=== PATIENT | female | born 1990 | race Caucasian/White ===

== ENCOUNTER 2025-02-02 11:45 | Outpatient (REF) | payer OTHER, SELFPAY ==
--- OUTSIDE RECORDS SUMMARY | 2025-01-28 10:00 | XMS_ITS | Encounter Summary ---
Author Organization [employer] Address [address] [place] [address] Care Team Providers Care Object Oriented Programmer Name Role Phone Unavailable Primary Care Provider Unavailabl e Reason for Visit * Reason Comments Extraction #18 Encounter Details Date Type Department Care Team (Late st Contact Info) Description 01/28/2025 10:00 AM EDT Office Visit [facility] [address] [place], [place] [phone] Laureano Jordan DDS [address], [place] [phone] Dental abscess (Primary Dx) Social History Tobacco Use Types Packs/Day Years Used Date Smoking Tobacco: Never Smokeless Tobacco: Never Alcohol Use Standard Drinks/Week Comments Never 0 (1 standard drink = 0.6 oz pur e alcohol) Housing Stability Answer Date Recorded What is your housing situation today? I have adam lemon 01/27/[address] you li ve. Do you have problems with any of the following? None of the above 01/27/2025 Food Insecurity Answer Date Recorded Within the past 12 months, y ou worried that your food would run out before you got money to buy more: Never True 01/27/2025 Within the past 12 months,th e food you bought just didn't last and you didn't have enough money to get more: Never True Transportation Answer Date Recorded In the past 12 months, has l ack of transportation kept you from medical appts, meetings, work or from getting things needed for daily living? Yes, it has kept me from medical appointments or getting medications. 01/27/2025 Utilities Answer Date Recorded In the past 12 months, has t he electric, gas, oil or water company threatened to shut off services in your home? No 01/27/2025 Internet Access Answer Date Recorded Internet Access Q1 Yes 01/27/2025 Internet Access Q2 Not on file 01/27/2025 Comments Unknown Sex and Gender Information Value Date Recorded Sex Assigned at Female 03/11/2022 10:21 AM EDT Legal Sex Female 10:21 AM EDT Gender Identity Female 03/11/2022 10:21 AM EDT Sexual Orientation Choose not to disclose 2021 10:21 AM EDT documented as of this encounter Last Filed Vital Signs Vital Sign Reading Time Taken Comments Blood Pressure 100/70 01/28/2025 10:19 AM EDT Pulse 88 01/28/2025 10:19 AM EDT Temperature - - Respiratory Rate - - Oxygen Saturation - - Inhaled Oxygen Concentration - - Weight - - Height - - Body Mass Index - - documented in this encounter Progress Notes * Laureano Jordan, JANES - 01/28/2025 10:00 AM EDT Patient ID: Robert Munoz is a 35 y.o. female. Time Out: Timeout Date: 01/28/25, Timeout Time: 1019 (ext on tooth#18) Location: [facility] Tooth: Mandible and #18 Procedure: Extraction Verified the above with patient, social human services assistants, and provider. Confirmed via patient's chart, intraorally and by radiographs. Senior Center Manager: not applicable Chief Complaint Patient presents with Extraction #18 Medical Hx: Vitals: Blood pressure 100/70, pulse 88. Medical History[1] Medications: Encounter Medications[2] Consent Obtained: The risks, benefits, indications, potential complications, and alternatives were explained to the patient and informed consent was obtained with good understanding. Treatment Provided: Dental procedures in this visit D7140 - EXTRACTION, ERUPTED TOOTH OR EXPOSED ROOT (ELEVATION/FORCEPS REMOVAL) 18 D9450 - CASE PRESENTATION, DETAILED AND EXTENSIVE TREATMENT PLANNING Diagnosis: dental abscess Topical: 20% Benzocaine Anesthesia: 2% Lidocaine (Xylocaine) w/ 1:100,000 epinephrine Number of Cartridges: 2 Injection Type: Inferior alveolar nerve block, Long buccal nerve block, and Intrapapillary injection Confirmed profound anesthesia. Pharyngeal curtain and bite block placed. Removed tooth with elevators and forceps. Apices intact. Surgical Extraction: Yes, sectioned tooth with surgical handpiece and bur Socket curetted & irrigated with sterile water. Compressed alveolar bone. Sutures: None Needed All adjacent teeth intact. Hemostasis achieved. Complications: None. Pt tolerated procedure well.Pt states having analgesics at home. Written and verbal post-op instructions given. Patient discharged in stable condition; ambulatory, alert, and oriented. NV: F/u as needed Caustic Strength Inspector: Mercy Dave Dentist: Laureano Jordan DDS [1] Past Medical History: Diagnosis Date Known health problems: none [2] Outpatient Encounter Medications as of 01/28/2025 Medication Sig Dispense Refill acetaminophen (Tylenol 8 Hour) 650 MG ER tablet Take 1 tablet (650 mg) by mouth every 8 (eight) hours if needed for mild pain. Do not crush, chew, or split. 30 tablet 0 amoxicillin (Amoxil) 500 MG capsule Take 1 capsule (500 mg) by mouth every 8 (eight) hours for 7 days. 21 capsule 0 ibuprofen 600 MG tablet Take 1 tablet (600 mg) by mouth 3 times daily. 15 tablet 0 No facility-administered encounter medications on file as of 01/28/2025. documented in this encounter Plan of Treatment Upcoming Encounters Date Type Department Care Team (Late st Contact Info) Description 03/24/2025 10:00 AM EST Procedure Visit [facility] [address] [place], [place] [phone] Ramesh Leon, LICENSED PESTICIDE APPLICATOR [address] [place] [address] documented as of this encounter Procedures Procedure Name Priority Date/Time Associated Diagnosis Comments 18 EXTRACTION, ERUPTED TOOTH OR EXPOSED ROOT (ELEVATION/FORCEPS REMOVAL) Routine 01/28/2025 10:00 AM EDT CASE PRESENTATION, DETAILED AND EXTENSIVE TREATMENT PLANNING Routine 01/28/2025 10:00 AM EDT documented in this encounter Visit Diagnoses Diagnosis Dental abscess- Primary Periapical abscess without sinus documented in this encounter
--- OUTSIDE RECORDS SUMMARY | 2025-02-02 10:00 | XMS_ITS | Encounter Summary ---
Author Organization [employer] Address [address] [place] [address] [address] [address] Care Team Providers Care Chief Of Staff Name Role Phone Unavailable Primary Care Provider Unavailabl e Reason for Referral * Medications - Closed Specialty Diagnoses / Procedures Referred By Lawanda andres Referred To Contact Diagnoses Class 3 severe obesity due to excess calories with body mass index (BMI) of 40.0 to 44.9 in adult, unspecified whether serious comorbidity present Ramesh Leon CNP [address] [place] [address] Phone: tel: fax: Referral ID Status Reason Start Date Expiration Date Visits Re quested Visits Authorized [id number] Closed 1 1 * Consultation (Routine) - Authorized Specialty Diagnoses / Procedures Referred By Lawanda andres Referred To Contact Nutrition Diagnoses Class 2 obesity Ramesh Leon CNP [address] [place] [address] Phone: tel: fax: Referral ID Status Reason Start Date Expiration Date Visits Requested Visits Authorized [id number] Authorized Consult and Treat 02/02/2025 02/02/2026 1 1 Encounter Details Date Type Department Care Team (Late st Contact Info) Description 02/02/2025 10:00 AM EDT Office Visit [facility] [address] [place], [place] [phone] Ramesh Leon CNP [address] [place] [address] Encounter for physical examination (Primary Dx); Depression, unspecified depression type; Migraine without aura and without status migrainosus, not intractable; Dietary counseling; Exercise counseling; Class 3 severe obesity due to excess calories with body mass index (BMI) of 40.0 to 44.9 in adult, unspecified whether serious comorbidity present; Class 2 obesity Social History Tobacco Use Types Packs/Day Years Used Date Smoking Tobacco: Never Smokeless Tobacco: Never Alcohol Use Standard Drinks/Week Comments Never 0 (1 standard drink = 0.6 oz pur e alcohol) Depression Answer Date Recorded Patient Health Questionnaire-9 Score 6 02/02/2025 Patient Health Questionnaire-9 Score 6 02/02/2025 Last PHQ-9: Questionnaire Data Not on file 0 02/02/2025 Housing Stability Answer Date Recorded What is [...] from getting things needed for daily living? No 02/02/2025 Utilities Answer Date Recorded In the past 12 months, has t he electric, gas, oil or water company threatened to shut off services in your home? No 01/27/2025 Depression Answer Date Recorded Patient Health Questionnaire-2 Score 2 02/02/2025 Internet Access Answer Date Recorded Internet Access Q1 Yes 01/27/2025 Internet Access Q2 Not on file 01/27/2025 Comments No Sex and Gender Information Value Date Recorded Sex Assigned at Female 03/11/2022 10:21 AM EDT Legal Sex Female 10:21 AM EDT Gender Identity Female 03/11/2022 10:21 AM EDT Sexual Orientation Choose not to disclose 2021 10:21 AM EDT documented as of this encounter Last Filed Vital Signs Vital Sign Reading Time Taken Comments Blood Pressure 126/72 02/02/2025 10:16 AM EDT Pulse 80 02/02/2025 10:16 AM EDT Temperature 36.6 C (97.8 F) 02/02/2025 10:16 AM EDT Respiratory Rate 14 02/02/2025 10:16 AM EDT Oxygen Saturation 99% 02/02/2025 10:16 AM EDT Inhaled Oxygen Concentration - - Weight 103 kg (226 lb) 02/02/2025 10:16 AM EDT Height 152.4 cm (5') 02/02/2025 10:16 AM EDT Body Mass Index 44.14 02/02/2025 10:16 AM EDT documented in this encounter Functional Status * Over the past 2 weeks, how often have you been bothered by any of the following problems? Question Answer Date of Assessment Author Patient Health Questionnaire -2 Score 2 02/02/2025 10:21 AM EDT Sa dayan Hester [place] * Little interest or pleasure in doing things Answer Date of Assessment Author Several days 02/02/2025 10:21 AM EDT Tere Beth [place] * Feeling down, depressed, or hopeless Answer Date of Assessment Author Several days 02/02/2025 10:21 AM EDT Tere Beth [place] * Trouble falling or staying asleep, or sleeping too much Answer Date of Assessment Author Several days 02/02/2025 10:21 AM EDT Tere Beth [place] * Feeling tired or having little energy Answer Date of Assessment Author Several days 02/02/2025 10:21 AM EDT Tere Beth [place] * Poor appetite or overeating Answer Date of Assessment Author Several days 02/02/2025 10:21 AM EDT Tere Beth [place] * Feeling bad about yourself - or that you are a failure or have let yourself or your family down Answer Date of Assessment Author Not at all 02/02/2025 10:21 AM AKOSUAT Tere Beth MA * Trouble concentrating on things, such as reading the newspaper or watching television Answer Date of Assessment Author Several days 02/02/2025 10:21 AM EDT Tere Beth [place] * Moving or speaking so slowly that other people could have noticed? Or the opposite - being so fidgety or restless that you have been moving around a lot more than usual. Answer Date of Assessment Author Not at all 02/02/2025 10:21 AM EDT Tere Beth MA * Thoughts that you would be better off or hurting yourself in some way Answer Date of Assessment Author Not at all 02/02/2025 10:21 AM AKOSUAT Tere Beth MA * Patient Health Questionnaire-9 Score Answer Date of Assessment Author 6 02/02/2025 10:21 AM AKOSUAT Tere Beth MA * How difficult have these problems made it for you to do your work, take care of things at home, or get along with other people? Answer Date of Assessment Author Not difficult at all 02/02/2025 10:21 AM EDT Tere Dudley MA * Over the last 2 weeks, how often have you been bothered by any of the following problems? Question Answer Date of Assessment Author Feeling nervous, anxious, or on edge 0 02/02/2025 10:20 AM EDT Sa dayan Hester MA Not being able to stop or control worrying 1 02/02/2025 10:20 AM AKOSUAT Sa dayan Hester MA Worrying too much about different things 3 02/02/2025 10:20 AM Sa dayan Tam MA Trouble relaxing 1 02/02/2025 10:20 AM Tere Tam MA Being so restless that it is hard to sit still 0 02/02/2025 10:20 AM Sa dayan Tam MA Becoming easily annoyed or irritable 3 02/02/2025 10:20 AM Sa dayan Tam MA Feeling afraid as if somethi ng awful might happen 0 02/02/2025 10:20 AM Sa dayan Tam MA PRINCESS-7 Total Score 8 02/02/2025 10:20 AM Tere Tam MA documented as of this encounter Progress Notes * Ramesh Leon CNP - 02/02/2025 10:00 AM EDT Subjective: Robert Munoz is a 35 y.o. female who presents to the office for a new patient visit. Previous PCP unknown. Interim history: - History of migraines and depression, pt reports these conditions are stable at this time, not currently taking any medications at this time. She declines additional support at this time. - Gradual weight gain over several years, difficulty with motivation for diet and exercise, comforteating due to depression and stress Current concerns: Weight gain -pt reports an ongoing struggle with weight gain over the last few years. -she reports she lacks motivation for a consistent diet/exercise regimen. -she was offered bariatric surgery in the past but she is interested in discussing non surgical options. -she also attributes her chronic back pain to her weight. Problem List[1] Surgical History[2] Family History[3] Social History Living situation: has secure housing Diet/exercise: denies Substance use: denies Mental health: Patient Health Questionnaire-9 Score: 6 (02/02/2025 10:21 AM) Patient Health Questionnaire-2 Score: 2 (02/02/2025 10:21 AM) Thoughts that you would be better off or hurting yourself in some way: Not at all (02/02/2025 10:21 AM) PRINCESS-7 Total Score: 8 (02/02/2025 10:20 AM) Contraception: none at this time, no actively seeking Patient's last menstrual period was 01/11/2025. Periods are irregular, reports they used to be regular up until about 1 yr ago, sometimes she has one at the beginning and the end of the month Allergies[4] Review of Systems Constitutional: Positive for unexpected weight change. Negative for activity change and appetite change. Musculoskeletal: Positive for back pain. Negative for arthralgias, gait problem, joint swelling, myalgias, neck pain and neck stiffness. Vitals: 02/02/25 1016 BP: 126/72 BP Location: Left arm Patient Position: Sitting BP Cuff Size: Large adult Pulse: 80 Resp: 14 Temp: 97.8 ??F (36.6 ??C) TempSrc: Oral SpO2: 99% Weight: 226 lb (103 kg) Height: 5' (1.524 m) Physical Exam Constitutional: Appearance: Normal appearance. She is obese. Cardiovascular: Rate and Rhythm: Normal rate and regular rhythm. Pulses: Normal pulses. Heart sounds: Normal heart sounds. No murmur heard. No friction rub. No gallop. Pulmonary: Effort: Pulmonary effort is normal. No respiratory distress. Breath sounds: Normal breath sounds. No wheezing or rales. Neurological: General: No focal deficit present. Mental Status: She is alert and oriented to person, place, and time. Psychiatric: Mood and Affect: Mood normal. Behavior: Behavior normal. Thought Content: Thought content normal. Judgment: Judgment normal. Assessment & Plan Encounter for physical examination 1. Anticipatory guidance discussed. Specific topics reviewed: drugs, ETOH, and tobacco, importance of regular dental care, importance of regular exercise, importance of varied diet, minimize junk food, and sex; STD and prevention as appropriate. 2. Age appropriate screenings discussed and recommended Routine Screening and Health Maintenance Optometry: No will put in appointment request Dentist: Yes BMD: not yet indicated ASCVD risk: 35 y.o. femaleobese sedentary lifestyle Lab Review: orders written for new lab studies as appropriate; see orders Imms: Covid, flu, tdap, will offer at f/u. Hep B serologies pending Routine Cancer Screening Breast CA: not yet due Cervical CA: due, plan to complete at f/u. Colon CA: not yet due Lung CA: not yet due Orders: CBC auto differential; Future Comprehensive Metabolic Panel; Future TSH W/Reflex to FT4; Future Lipid Panel, Standard; Future Hemoglobin A1c; Future Hepatitis B Surface Antibody, Qualitative; Future Hepatitis B Core Antibody, Total; Future Hepatitis B surface antigen, EIA; Future HIV-1/2 Antigen and Antibodies, Fourth Generation, with Reflexes; Future Hepatitis C Antibody with Reflex to HCV, RNA, Quantitative, Real-Time PCR; Future Depression, unspecified depression type Stable, no interventions indicated at this time Pt declined services Migraine without aura and without status migrainosus, not intractable Stable, no interventions indicated at this time. Dietary counseling Dietary Recommendations: Fruits, vegetables, whole grains, protein foods, and fat-free or low-fat dairy products are healthychoices. Eat different types of protein foods in your diet. This can include seafood, lean meats, poultry, beans, peas, lentils, nuts, seeds, soy products, and eggs. Limit foods and beverages higher in added sugars, saturated fat, and sodium. Exercise counseling Exercise Recommendations: At least 150 minutes of moderate-intensity physical activity per week, or an equivalent combinationof moderate- and vigorous-intensity activity Class 3 severe obesity due to excess calories with body mass index (BMI) of 40.0 to 44.9 in adult, unspecified whether serious comorbidity present Today we discussed anti obesity pharm treatment including oral medications and injectables. As pt has history of depression and intermittent anxiety she has a contraindication to phentermine. We discussed MOA, side effects, and instructions for use of GLP 1 medications. She would like to try GLP 1 medications for weight loss. GLP 1 medication is appropriate for this patient given family history of CVD including hypertensionand because pt is morbidly obese. I will process PA request and we will f/u in 6 weeks I also referred to nutrition for meal planning Orders: Tirzepatide-Weight Management (Zepbound) 2.5 MG/0.5ML solution auto-injector; Inject 0.5 mL (2.5 mg) under the skin 1 (one) time per week. Current Medications[5] Immunization History Administered Date(s) Administered [employer] Covid-19 Vaccine 12+ 12/20/2020, 06/05/2021 Follow up in about 6 weeks (around 03/16/2025) for 30 minute f/u for pap smear and weight check . [1] Patient Active Problem List Diagnosis Dental abscess Tooth impaction Pain, dental Class 2 obesity Depression H/O tubal ligation Migraines [2] Past Surgical History: Procedure Laterality Date SECTION, CLASSIC Bilateral X2 [3] Family History Problem Relation Name Age of Onset Other (HTN) Mother Diabetes Mother Depression Mother Lung disease Father [4] No Known Allergies [5] No current outpatient medications on file. No current facility-administered medications for this visit. documented in this encounter Miscellaneous Notes * Assessment & Plan Note - Ramesh Leon CNP - 02/02/2025 10:00 AM EDT Associated Problem(s): Depression Stable, no interventions indicated at this time Pt declined services * Assessment & Plan Note - Ramesh Leon CNP - 02/02/2025 10:00 AM EDT Associated Problem(s): Migraines Stable, no interventions indicated at this time. documented in this encounter Plan of Treatment Upcoming Encounters Date Type Department Care Team (Late st Contact Info) Description 03/24/2025 10:00 AM EST Procedure Visit [facility] [address] [place] [address] Ramesh Leon CNP [address] [place] [address] Scheduled Orders Name Type Priority Associated Diagnoses Orde r Schedule Comprehensive Metabolic Panel Lab Routine Encounter for physical examination Expected: 02/02/2025 (Approximate), Expires: 02/02/2026 TSH W/Reflex to FT4 Lab Routine Encounter for physical examination Expected: 02/02/2025 (Approximate), Expires: 02/02/2026 Lipid Panel, Standard Lab Routine Encounter for physical examination Expected: 02/02/2025 (Approximate), Expires: 02/02/2026 Hemoglobin A1c Lab Routine Encounter for physical examination Expected: 02/02/2025 (Approximate), Expires: 02/02/2026 Hepatitis B Surface Antibody, Qualitative Lab Routine Encounter for physical examination Expected: 02/02/2025 (Approximate), Expires: 02/02/2026 Hepatitis B Core Antibody, Total Lab Routine Encounter for physical examination Expected: 02/02/2025 (Approximate), Expires: 02/02/2026 Hepatitis B surface antigen, EIA Lab Routine Encounter for physical examination Expected: 02/02/2025 (Approximate), Expires: 02/02/2026 HIV-1/2 Antigen and Antibodies, Fourth Generation, with Reflexes Lab Routine Encounter for physical examination Expected: 02/02/2025 (Approximate), Expires: 02/02/2026 Hepatitis C Antibody with Reflex to HCV, RNA, Quantitative, Real-Time PCR Lab Routine Encounter for physical examination Expected: 02/02/2025, Expires: 02/02/2026 Scheduled Referrals Name Type Priority Associated Diagnoses Orde r Schedule Referral to Nutrition Therapy Outpatient Referral Routine Class 2 obesity Expected: 02/02/2025 (Approximate), Expires: 02/02/2026 documented as of this encounter Procedures Procedure Name Priority Date/Time Associated Diagnosis Comments CBC WITH AUTO DIFFERENTIAL Routine 02/02/2025 11:55 AM EDT Encounter for physical examination documented in this encounter Results * (ABNORMAL) CBC auto differential (02/02/2025 11:55 AM EDT) White Blood Count 6.7 4.8 - 10.8 X10*3/uL [facility] Red Blood Count 3.97(L) 4.20 - 5.50 X10*6/uL [facility] Hemoglobin 10.6(L) 12.0 - 16.0 g/dl [facility] Hematocrit 33.5(L) 37.0 - 47.0 % [facility] Mean Corpuscular Volume 84.4 80.0 - 98.0 fL [facility] Mean Corpuscular Hemoglobin 26.7(L) 27.0 - 33.0 pg [facility] Mean Corpuscular HGB Conc 31.6 31.0 - 35.0 g/dl [facility] Red Cell Distribution Width 13.7 11.0 - 16.0 % [facility] Platelet Count 238 160 - 400 X10*3/uL [facility] Mean Platelet Volume 12.5(H) 9.4 - 12.3 fL [facility] Neutrophils Percent Auto 67.5 45 - 73 % [facility] Imm Gran Pct Auto 0.3 0.0 - 0.4 % [facility] Lymphocytes Percent Auto 23.7 20 - 40 % [facility] Monocytes Percent Auto 7.0 2 - 11 % [facility] Eosinophils Percent Auto 1.2 0 - 4 % [facility] Basophils Percent Auto 0.3 0 - 2 % [facility] NRBC Pct Auto 0.0 0.0 - 0.2 /100WBC [facility] Neutrophils Absolute Auto 4.6 2.0 - 8.3 x10*3/uL [facility] Imm Gran Abs Auto 0.02 0.00 - 0.03 X10*3/uL [facility] Lymphocytes Absolute Auto 1.6 1.2 - 4.9 X10*3/uL [facility] Monocytes Absolute Auto 0.5 0.1 - 1.2 X10*3/uL [facility] Eosinophils Absolute Auto 0.1 0.0 - 0.4 X10*3/uL [facility] Basophils Absolute Auto 0.0 0.0 - 0.2 X10*3/uL [facility] NRBC Abs Auto 0.000 0.0 - 0.012 X10*3/uL [facility] Blood Venous blood specimen / Unknown 02/02/2025 11:55 AM EDT 02/02/2025 2:28 PM EDT [facility] LAB BLOOD ORDERABLES Irene l Result Performing Organization Address City/State/[facility] Co de Phone Number [facility] [address] [place] [phone] documented in this encounter Visit Diagnoses Diagnosis Encounter for physical examination- Primary Depression, unspecified depression type Migraine without aura and without status migrainosus, not intractable Dietary counseling Dietary surveillance and counseling Exercise counseling Class 3 severe obesity due to excess calories with body mass index (BMI) of 40.0 to 44.9 in adult, unspecified whether serious comorbidity present Class 2 obesity documented in this encounter Additional Health Concerns Assessment Noted Time PHQ-9 Depression Total Score: 6 02/03/20 25 10:21 AM EDT documented as of this encounter
[2025-02-02 14:33] LABS: MANUAL DIFF FLAG NO
[2025-02-02 14:39] LABS: Hematocrit 33.5 % (37.0-47.0); Hemoglobin 10.6 g/dl (12.0-16.0); Imm Gran Abs Auto 0.02 X10*3/uL (0.00-0.03); Imm Gran Pct Auto 0.3 % (0.0-0.4); Lymphocytes Absolute Auto 1.6 X10*3/uL (1.2-4.9); Mean Corpuscular HGB Conc 31.6 g/dl (31.0-35.0); Mean Corpuscular Hemoglobin 26.7 pg (27.0-33.0); Mean Corpuscular Volume 84.4 fL (80.0-98.0); NRBC Abs Auto 0.000 X10*3/uL (0.0-0.012); NRBC Pct Auto 0.0 /100WBC (0.0-0.2); Platelet Count 238 X10*3/uL (160-400); Red Blood Count 3.97 X10*6/uL (4.20-5.50); White Blood Count 6.7 X10*3/uL (4.8-10.8)
--- OUTSIDE RECORDS SUMMARY | 2025-02-02 14:48 | XMS_ITS | Clinical Summary ---
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 Name Role Phone Unavailable Primary Care Provider Unavailabl e Social History Tobacco Use Types Packs/Day Years Used Date Smoking Tobacco: Never Assessed Comments Unknown Sex and Gender Information Value Date Recorded Sex Assigned at Not on file Legal Sex Female 2:25 AM EST Gender Identity Not on file Sexual Orientation Not on file Plan of Treatment Health Maintenance Due Date Last Done Comments DTaP,Tdap,and Td Vaccines (1 - Tdap) 01/08/2008 Hepatitis B Vaccines (1 of 3 - 19+ 3-dose series) 01/08/2008 Cervical Cancer Screening: P ap Smear 2010 HIV Screening 04/14/2022 Hepatitis C Screening 04/14/2022 Social Influencers of Health Screening 04/14/2022 Depression Screening 05/12/2024 COVID-19 Vaccine (1 - 2023-2 5 season) 2025 Influenza Vaccine (#1) 2025 RSV Immunization Adult Patie nts (1 - 1-dose 75+ series) 01/08/2064 HIB Vaccines Aged Out No longer eligi ble based on patient's age to complete this topic HPV Vaccines Aged Out No longer eligi ble based on patient's age to complete this topic Hepatitis A Vaccines Aged Out No long er eligible based on patient's age to complete this topic IPV Vaccines Aged Out No longer eligi ble based on patient's age to complete this topic MMR Vaccines Aged Out No longer eligi ble based on patient's age to complete this topic Meningococcal ACWY Vaccine Aged Out N o longer eligible based on patient's age to complete this topic Meningococcal B Vaccine Aged Out No l onger eligible based on patient's age to complete this topic Pneumococcal Vaccine: Pediat rics (0 to 5 Years) and At-Risk Patients (6 to 49 Years) Aged Out No longer eligible b ased on patient's age to complete this topic RSV Immunization Patients Un malia 20 months Aged Out No longer eligible b ased on patient's age to complete this topic Varicella Vaccines Aged Out No longer eligible based on patient's age to complete this topic
--- OUTSIDE RECORDS SUMMARY | 2025-02-02 14:49 | XMS_ITS | Clinical Summary ---
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 2 mL 5 Active acetaminophen (Tylenol 8 Hour) 650 MG ER tabletIndicatio ns:Dental abscess,Tooth impaction Take 1 tablet (650 mg) by mouth every 8 (eight) hours if needed for mild pain. Do not crush, chew, or split. 30 tablet 5 025 Discontinued ibuprofen 600 MG tabletIndicatio ns:Dental abscess,Tooth impaction Take 1 tablet (600 mg) by mouth 3 times daily. 15 tablet 5 025 Discontinued amoxicillin (Amoxil) 500 MG capsuleIndicati ons:Dental abscess,Tooth impaction Take 1 capsule (500 mg) by mouth every 8 (eight) hours for 7 days. 21 capsule 5 025 Discontinued DULoxetine (Cymbalta) [address] capsule Take 30 mg by mouth Once per day. 3 025 Discontinued polyethylene glycol, PEG, 3350 (MiraLax) 17 g packet Take 17 g by mouth. 3 025 Discontinued Active Problems Problem Noted Date Diagnosed Date Class 2 obesity 02/02/2025 Depression 02/02/2025 Assessment & Plan (02/02/2025 1:39 PM EDT): Stable, no interventions indicated at this time Pt declined services H/O tubal ligation 02/02/2025 Migraines 02/02/2025 Assessment & Plan (02/02/2025 1:39 PM EDT): Stable, no interventions indicated at this time. Dental abscess 01/19/2025 Tooth impaction 01/19/2025 Pain, dental 01/19/2025 Encounters Date Type Department Care Team Description 02/02/2025 10:00 AM EDT Office Visit [facility] [address] [place] [address] Ramesh Leon CNP Encounter for physical examination (Primary Dx); Depression, unspecified depression type; Migraine without aura and without status migrainosus, not intractable; Dietary counseling; Exercise counseling; Class 3 severe obesity due to excess calories with body mass index (BMI) of 40.0 to 44.9 in adult, unspecified whether serious comorbidity present; Class 2 obesity 02/02/2025 Travel 01/28/2025 10:00 AM EDT Office Visit [facility] [address] [place] [address] Laureano Jordan DDS Dental abscess (Primary Dx) 01/27/2025 Patient Outreach [facility] [address] [place] [phone] Ramesh Leon CNP Care Coordination (CHW outreach for SDOH housing search-referral completed ) 01/27/2025 Patient Outreach [facility] [address] [place] [phone] Ezra Cook MD Pre-visit Planning (SDOH screening positive and Tobacco screening negative) 01/21/2025 Telephone [facility] [address] [place] [address] Tere Hester MA chart prep 01/19/2025 11:30 AM EDT Office Visit [facility] [address] [place] [address] Laureano Jordan DDS Dental abscess (Primary Dx); Tooth impaction; Pain, dental 01/14/2025 Telephone [facility] [address], [place] [phone] Ezra Cook MD CHW - New Patient Assistance from Last 3 Months Family History Medical History Relation Name Comments Lung disease Father Depression Mother Diabetes Mother HTN Mother Relation Name Status Comments Father Mother Social History Tobacco Use Types Packs/Day Years Used Date Smoking Tobacco: Never Smokeless Tobacco: Never Tobacco Cessation:Counseling Given: Not Answered Alcohol Use Standard Drinks/Week Comments Never 0 [...] not to disclose 2021 10:21 AM EDT Last Filed Vital Signs Vital Sign Reading [...] Mass Index 44.14 02/02/2025 10:16 AM EDT Plan of Treatment Upcoming Encounters Date Type Department Care Team ([facility] st Contact Info) Description 03/24/2025 10:00 AM EST Procedure Visit [facility] [address] [place] [address] Ramesh Leon, FORENSIC BALLISTICS EXPERT [address] [place] [address] Health Maintenance Due Date Last Done Comments Dental Oral Exam 1989 Dental Prophylaxis 1989 HIV Screening 1989 Lipid Panel 1989 Family Planning (PISQ) 01/08/2004 Hepatitis C Screening 2007 Hepatitis B Vaccines (1 of 3 - 19+ 3-dose series) 01/08/2008 Pap Smear 2010 Cervical Cancer Screening 2019 HPV/Cotest 2019 DTaP/Tdap/Td Vaccines (2 - T d or Tdap) 03/04/2022 03/04/2012 Dental X-Ray: Bitewings 09/03/2024 09/03/2023 COVID-19 Vaccine (3 - 2024-2 6 season) 2025 06/05/2021, 12/20/2020 Influenza Vaccine (#1) 2025 07/08/2022 Alcohol/Substance Use Screening 02/02/2026 02/02/2025 Depression Screening 02/02/2026 02/02/2025, 02/02/2025 Disability Screening 02/02/2026 02/02/2025 SDOH Screening 02/02/2026 02/02/2025 Tobacco Screening 02/02/2026 02/02/2025 Dental X-Ray: Full Mouth 01/21/2028 01/19/2025 Zoster Vaccines (1 of 2) 2039 RSV Patients and Patients Aged 60 years or older (1 - 1-dose 75+ series) 01/08/2064 HPV Vaccines Completed 09/26/2014, 09/07/2013, 07/12/2013 HIB Vaccines Aged Out No longer eligi [...] patient's age to complete this topic Meningococcal Vaccine Aged Out No ayla brendan eligible based on patient's age to complete this topic Pneumococcal Vaccine: Pediatrics (0 to 5 Years) and At-Risk Patients (6 to 49) Years Aged Out No longer eligible b ased on patient's age to complete this topic RSV under 20 months Aged Out No longe r eligible based on patient's age to complete this topic Rotavirus Vaccines Aged Out No longer eligible based on patient's age to complete this topic Procedures Procedure Name Priority Date/Time Associated Diagnosis Comments CBC WITH AUTO DIFFERENTIAL Routine 02/02/2025 11:55 AM EDT Encounter for physical examination CASE PRESENTATION, DETAILED AND EXTENSIVE TREATMENT PLANNING Routine 01/28/2025 10:00 AM EDT 18 EXTRACTION, ERUPTED TOOTH OR EXPOSED ROOT (ELEVATION/FORCEPS REMOVAL) Routine 01/28/2025 10:00 AM EDT CASE PRESENTATION, DETAILED AND EXTENSIVE TREATMENT PLANNING Routine 01/19/2025 11:30 AM EDT PANORAMIC RADIOGRAPHIC IMAGE Routine 01/19/2025 11:30 AM EDT LIMITED ORAL EVALUATION - PROBLEM FOCUSED Routine 01/19/2025 11:30 AM EDT BITEWING - SINGLE RADIOGRAPHIC IMAGE Routine 09/03/2023 11:00 AM EDT from Last 3 Months or Most Recently Relevant to Health Maintenance Results * (ABNORMAL) CBC auto differential (02/02/2025 11:55 AM EDT) White Blood Count 6.7 4.8 - 10.8 X10*3/uL [facility] Red Blood Count 3.97(L) 4.20 - 5.50 X10*6/uL [facility] Hemoglobin 10.6(L) 12.0 - 16.0 g/dl [facility] Hematocrit 33.5(L) 37.0 - 47.0 % [facility] Mean Corpuscular Volume 84.4 80.0 - 98.0 fL [facility] Mean Corpuscular Hemoglobin 26.7(L) 27.0 - 33.0 pg [facility] Mean Corpuscular HGB Conc 31.6 31.0 - 35.0 g/dl [facility] Red Cell Distribution Width 13.7 11.0 - 16.0 % [facility] Platelet Count 238 160 - 400 X10*3/uL [facility] Mean Platelet Volume 12.5(H) 9.4 - 12.3 fL [facility] Neutrophils Percent Auto 67.5 45 - 73 % [facility] Imm Gran Pct Auto 0.3 0.0 - 0.4 % [facility] Lymphocytes Percent Auto 23.7 20 - 40 % [facility] Monocytes Percent Auto 7.0 2 - 11 % [facility] Eosinophils Percent Auto 1.2 0 - 4 % [facility] Basophils Percent Auto 0.3 0 - 2 % [facility] NRBC Pct Auto 0.0 0.0 - 0.2 /100WBC [facility] Neutrophils Absolute Auto 4.6 2.0 - 8.3 x10*3/uL [facility] Imm Gran Abs Auto 0.02 0.00 - 0.03 X10*3/uL [facility] Lymphocytes Absolute Auto 1.6 1.2 - 4.9 X10*3/uL [facility] Monocytes Absolute Auto 0.5 0.1 - 1.2 X10*3/uL [facility] Eosinophils Absolute Auto 0.1 0.0 - 0.4 X10*3/uL [facility] Basophils Absolute Auto 0.0 0.0 - 0.2 X10*3/uL [facility] NRBC Abs Auto 0.000 0.0 - 0.012 X10*3/uL [facility] Blood Venous blood specimen / Unknown 02/02/2025 11:55 AM EDT 02/02/2025 2:28 PM EDT us Alexxis Leon FORENSIC BALLISTICS EXPERT LAB BLOOD ORDERABLES Irene l Result [facility] [address] [place] [address] [phone] from Last 3 Months Insurance D[facility]AL-[facility] MEDICAID [facility] ADULT [facility] DENTAL-[facility] [place] [place] [address] , [place] [address] , [place] [address]
--- OUTSIDE RECORDS SUMMARY | 2025-02-02 14:49 | XMS_ITS | Encounter Summary ---
Author Organization [employer] Address [address] [facility] [address] [place] [address] Care Team Providers Care Applications Support Lead Name Role Phone Unavailable Primary Care Provider Unavailabl e Encounter Details Date Type Department Care Team (Latest Contact Info) Description 02/02/2025 Travel Social History Tobacco Use Types Packs/Day Years [...] is your housing situation today? I have adamdaniela lemon 01/27/[address] you [...] AM EDT documented as of this encounter Functional Status * Over the [...] Assessment Author Several days 02/02/2025 10:21 AM AKOSUAT Tere Beth MA * Poor appetite or [...] Assessment Author Several days 02/02/2025 10:21 AM AKOSUAT Tere Beth MA * Moving or speaking so slowly that other people could have noticed? Or the opposite - being so fidgety or restless that you have been moving around a lot more than usual. Answer Date of Assessment Author Not at all 02/02/2025 10:21 AM Tere Rosas [place] * Thoughts that you would be better off or hurting yourself in some way Answer Date of Assessment Author Not at all 02/02/2025 10:21 AM EDT Tere Beth MA * Patient Health Questionnaire-9 Score Answer Date of Assessment Author 6 02/02/2025 10:21 AM EDT Tere Beth MA * How difficult have [...] or on edge 0 02/02/2025 10:20 AM Sa dayan Tam MA Not being able to stop or control worrying 1 02/02/2025 10:20 AM Sa dayan Tam MA Worrying too much about different things 3 02/02/2025 10:20 AM EDT Sa dayan Hester MA Trouble relaxing 1 02/02/2025 10:20 AM Tere Tam MA Being so restless that it is hard to sit still 0 02/02/2025 10:20 AM Sa dayan Tam MA Becoming easily annoyed or irritable 3 02/02/2025 10:20 AM Sa dayan Tam MA Feeling afraid as if somethi ng awful might happen 0 02/02/2025 10:20 AM EDSa dayan Cedeño MA PRINCESS-7 Total Score 8 02/02/2025 10:20 AM Tere Tam MA documented as of this encounter Plan of Treatment Upcoming Encounters Date Type Department Care Team (Late st Contact Info) Description 03/24/2025 10:00 AM EST Procedure Visit [facility] [address] [place] [address] Ramesh Leon, METAL FABRICATOR APPRENTICE [address] [place] [address] documented as of this encounter Visit Diagnoses Not on filedocumented in this encounter Additional Health Concerns Assessment Noted Time PHQ-9 Depression Total Score: 6 02/03/20 25 10:21 AM EDT documented as of this encounter
[2025-02-02 14:53] LABS: Hemoglobin A1C 108.2861 umol/L; Total Hemoglobin (HGBA1C) 2840.0047 umol/L
[2025-02-02 15:21] LABS: Alanine Aminotransferase 13 U/L (0-31); Albumin Level 4.4 g/dL (3.5-5.0); Alkaline Phosphatase 71 U/L (39-117); Anion Gap 8 (12-20); Aspartate Amino Transferase 33 U/L (5-31); Blood Urea Nitrogen 12 mg/dL (9-16); Calcium 8.7 mg/dL (8.4-10.2); Carbon Dioxide 25 mmol/L (22-29); Chloride 108 mmol/L (96-108); Cholesterol 216 mg/dL (<200); Estimated Glomerular Filt Rate > 60; HDL Cholesterol 44 mg/dL (>40); Potassium 3.4 mmol/L (3.3-5.1); Sodium 138 mmol/L (135-145); Total Protein 7.4 g/dL (6.5-8.0); Triglycerides 181 mg/dL (<150)
[2025-02-03 04:50] LABS: HBS Num1 9.75 mIU/mL (0-7.99); HBc Num1 0.04 S/CO (0.00-0.79); HBsAGNum1 0.32 S/CO (0.00-0.99); HIV Num 1 0.04 S/CO (0.00-0.99); Hepatitis B Surface Antigen Negative (Negative); ~HepC Num1 0.09 S/CO (0.00-0.79); ~Hepatitis C Antibody Nonreactive (Nonreactive)
[2025-02-03 05:29] LABS: HBS Num2 9.07 mIU/mL (0-7.99); HBS Num3 9.25 mIU/mL (0-7.99); ~Hepatitis B Surface Antibody GRAYZONE (Nonreactive)
== END 2025-02-02 11:46 | disposition home or self-care (01) ==
LOC: HO.CHCLDS 11:45
DX: Z00.00 Encounter for general adult medical examination without abnormal findings (principal); Z11.4 Encounter for screening for human immunodeficiency virus [HIV]; Z11.59 Encounter for screening for other viral diseases
CPT/HCPCS: 36415; 80053; 80061; 83036; 84443; 85025; 86704; 86706; 86803; 87340; 87389